=== PATIENT | female | born 2000 | race Caucasian/White ===

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

== ENCOUNTER 2022-11-12 15:56 | Emergency (ER) | payer OTHER, SELFPAY ==
[2022-11-12 16:06] VITALS: BP 107/53; PULSE 92; RESP 16; TEMP 37.2; O2SAT 99
--- NOTE | 2022-11-12 16:34 | ED.ABDPAIN ---
HPI - Abdominal Pain General Chief Complaint: Abdominal Pain Stated Complaint: Abdominal Pain Source: patient Mode of arrival: ambulatory Limitations: no limitations History of Present Illness HPI narrative: Patient presents for evaluation of a burning sensation in her epigastric region since yesterday. She was at work at the time of symptom onset. She had some associated nausea. A friend advise that she smell some rubbing alcohol to assist with the nausea. She did this and noted her nausea improved. No fever, chills, vomiting, diarrhea, change in bowel pattern. Last bowel movement was at 2:00 p.m. today, solid consistency without the presence of blood or mucus in the stool. She is currently menstruating. She took some ibuprofen to assist with menstrual cramps. This did help with cramps but did not assist with the burning sensation. She does not watch her diet. She consumes alcohol occasionally. Denies tobacco use. No vaginal discharge. Related Data Home Medications Medication Instructions Recorded Confirmed albuterol sulfate 2.5 mg/0.5 mL 5 mg inhalation Q4H PRN SOB 06/03/19 04/18/22 solution for nebulization Allergies Allergy/AdvReac Type Severity Reaction Status Date / Time cat dander Allergy Severe Anaphylactic Verified 11/12/22 15:57 Shock peanut Allergy Severe Anaphylactic Verified 11/12/22 15:57 Shock corn Allergy Unknown Unknown Verified 11/12/22 15:57 wheat Allergy Unknown Unknown Verified 11/12/22 15:57 Review of Systems Review of Systems: CONSTITUTIONAL: Denies fever, chills, or sweats. EYES: Denies visual changes, redness, or discharge. ENT: Denies rhinorrhea, congestion, sore throat, or otalgia. CARDIOVASCULAR: Denies chest pain, palpitations, or edema. RESPIRATORY: Denies cough or dyspnea. GASTROINTESTINAL: Reports a burning sensation in her epigastric region with some nausea. Denies abdominal pain per se, vomiting, or diarrhea. GENITOURINARY: Denies dysuria or hematuria. SKIN: Denies rash or itching. MUSCULOSKELETAL: Denies back pain, joint pain, or myalgia. NEUROLOGIC: Denies headache, numbness, dizziness, or weakness. PSYCHIATRIC: Denies anxiety or depression. [facility] Past Medical History Medical History (Updated 11/12/22 @ 16:53 by Saul Sims, TRANSFER STATION ATTENDANT, ) Exacerbation of allergic asthma Moderate persistent asthma Surgical History Surgical History H/O removal of cyst Family History Family History Father Acute myocardial infarction Asthma Grandparent Cerebrovascular accident Social History Social History Smoking status: Never smoker Second hand tobacco smoke exposure: No Alcohol intake: never Substance use: never Substance use type: does not use Living arrangements: with roommate(s) Occupation/Education: occupation Gender identity (if verbalized by the patient): Female Sexual Orientation (if Verbalized by the Patient): Straight or Heterosexual Spiritual care concerns: No Agree to blood products: Yes Exam Narrative: GENERAL: Well-appearing, well-nourished, and in no acute distress. HEAD: Normocephalic, atraumatic. EYES: PERRLA and EOMI. ENT: Nares clear, no rhinorrhea or epistaxis. Mucous membranes moist. Oropharynx without tonsillar hypertrophy exudate or other lesions. Bilateral TMs pearly hebert nonbulging NECK: Supple. No adenopathy or masses. No carotid bruits or JVD CHEST: Clear to auscultation. No respiratory distress. No wheezes rales or rhonchi HEART: Regular rate and rhythm. No murmur heard. Normal peripheral pulses. ABDOMEN: Soft, mild epigastric tenderness without rebound or guarding. Abdomen is nondistended, normal active bowel sounds. EXTREMITIES: Normal range of motion. No edema. SKIN: Warm, dry, no rash. NEURO: No focal deficits. Yvette
== END 2022-11-12 16:35 | disposition home or self-care (01) ==
PROVIDERS: Emergency Provider Nurse Practitioner; PCP Family Medicine Adolescent Medicine
DX: K29.70 Gastritis, unspecified, without bleeding (principal); J45.909 Unspecified asthma, uncomplicated
CPT/HCPCS: 99213; G0463

== ENCOUNTER 2024-08-18 22:24 | Inpatient (IN) | payer OTHER, SELFPAY ==
[2024-08-18] VITALS (22 sets, daily range): BP systolic 97–142; BP diastolic 62–94; PULSE 81–109; O2SAT 98–100; BMI 27.3
[2024-08-18 23:19] LABS: Hemoglobin 9.8 g/dL (12.0-15.0); Mean Corpuscular HGB Conc 32.7 g/dl (32-36); Mean Corpuscular Hemoglobin 27.1 pg (26-34); Mean Corpuscular Volume 83.1 fl (80-100); Mean Platelet Volume 12.4 fl (7.4-10.4); Platelet Count Result 203 k/mm3 (150-375); Red Blood Count 3.61 M/mm3 (4.2-5.4); Red Cell Distribution Width 12.8 % (11.5-14.5); White Blood Count 8.9 K/mm3 (4.5-10.0)
--- NOTE | 2024-08-18 23:19 | WPDANESEPP ---
Anes - Eval Pre Procedure Procedure: labor epidural Date/Time: 08/18/24 23:19 Surgeon: drew Preop Diagnosis: pain during labor Pre Op Diagnosis: Vaginal bleeding, Contractions Patient Data Age: 24 Gender: F Height: Weight: Last Vital Signs Pulse Ox 99 08/18/24 23:18 Allergies Allergy/AdvReac Type Severity Reaction Status Date / Time cat dander Allergy Severe Anaphylactic Verified 06/07/24 08:54 Shock peanut Allergy Severe Anaphylactic Verified 06/07/24 08:54 Shock corn Allergy Unknown Unknown Verified 06/07/24 08:54 wheat Allergy Unknown Unknown Verified 06/07/24 08:54 Home Medications ?Medication ?Instructions ?Recorded ?Confirmed ?Type albuterol sulfate 90 mcg/actuation 2 puff inhalation QID PRN SOB #8.5 09/10/21 06/07/24 Rx aerosol inhaler (ProAir HFA) grams epinephrine 0.3 mg/0.3 mL 0.3 mg (0.3 mL) IM ONCE #2 ea 02/05/23 06/07/24 Rx injection, auto-injector (EpiPen 2-Paolo) montelukast 10 mg tablet 10 mg PO DAILY #30 tabs 06/07/24 06/07/24 Rx Wixela Inhub 250 mcg-50 mcg/dose 1 inh inhalation BID #60 ea 06/21/24 Rx powder for inhalation (fluticasone propion-salmeterol) Laboratory Tests 08/18/24 23:12 WBC Pending RBC Pending Hgb Pending Hct Pending MCV Pending MCH Pending MCHC Pending RDW Pending Plt Count Pending MPV Pending Immature Gran % (Auto) Pending Neut % (Auto) Pending Lymph % (Auto) Pending [place] % (Auto) Pending Eos % (Auto) Pending Baso % (Auto) Pending Lymph # (Auto) Pending [place] # (Auto) Pending Eos # (Auto) Pending Baso # (Auto) Pending Abs Immat Gran (auto) Pending Absolute Neuts (auto) Pending Absolute Nucleated RBC Pending Nucleated RBC % Pending Patient hx anesthesia problems: none Family hx anesthesia problems: none Results Review: All pre-operative results and documents have been reviewed as part of the pre-operative evaluation. [facility] Past Medical History Medical History (Updated 08/18/24 @ 23:20 by Cherrie López CRNA) IUP (intrauterine ), incidental Moderate persistent asthma Exacerbation of allergic asthma Full code status Surgical History Surgical History (Updated 06/04/24 @ 05:56 by Francis Garcia MD) H/O removal of cyst Family History Family History Father Acute myocardial infarction Asthma Grandparent Cerebrovascular accident Social History Social History Smoking status: Never smoker Second hand tobacco smoke exposure: No Alcohol intake: never Substance use: never Substance use type: does not use Living arrangements: with roommate(s) Occupation/Education: occupation Gender identity (if verbalized by the patient): Female Sexual Orientation (if Verbalized by the Patient): Straight or Heterosexual Spiritual care concerns: No Agree to blood products: Yes Exam Day of Procedure 08/18/24 23:19
[2024-08-18] MEDS: LACTATED RINGERS 1,000 ML 125 ML IV CONT (23:20)
[2024-08-18] MEDS: AMPICILLIN 2 GM/NS 100 ML 2 GM/100 ML BAG IVPB (23:41)
[2024-08-18 23:42] LABS: Band Neutrophils Percent 7 % (0-6); Eosinophils Absolute Manual 0.17 K/mm3 (0.02-0.50); Eosinophils Percent Manual 2 % (0-4); Lymphocytes Absolute Manual 2.67 K/mm3 (1.1-4.5); Monocytes Absolute Manual 0.26 K/mm3 (0.1-0.90); Monocytes Percent Manual 3 % (3-9); Neutrophils Absolute Manual 5.78 K/mm3 (1.7-7.2); Neutrophils Percent Manual 58 % (46-73); Nucleated Red Blood Cells 1 %; Platelet Estimate Adequate (Adequate); Total Cells Counted 100
[2024-08-18 23:43] LABS: Anisocytosis 1+; Hypochromasia 1+; Large Platelets Present; Ovalocytes 1+; Schistocytes None Seen
--- NOTE | 2024-08-18 23:49 | LDADM ---
This patient, Mary Mantilla, was admitted to Labor/Delivery/Recovery 105 on 08/18/24 at 22:24. Plans for labor, pain management and were discussed with patient. Patient/family oriented to hospital policies and general routines including ID bracelet, bed and alarms, visiting hours, pain management, procedures, bathroom and other care routines, personal items, smoking policy, room service/diet and guest tray routines, security routines, and visiting hours. Patient/Family are encouraged to report perceived risks to care and to ask questions if they do not understand what they are told or what they should do. See OBIX for further documentation.
[2024-08-19] VITALS (49 sets, daily range): BP systolic 83–134; BP diastolic 46–94; PULSE 69–105; RESP 14–20; TEMP 36.6–37; O2SAT 96–100
[2024-08-19 00:27] LABS: HIV 1/2 Ab P24 Ag Result Negative (Negative)
[2024-08-19] MEDS: TERBUTALINE SULFATE 1 MG/ML VIAL 0.25 MG SUB-Q (01:11)
--- NOTE | 2024-08-19 01:12 | PM.IMHP ---
H&P: HPI History of Present Illness Date/Time: 08/19/24 01:12 Chief Complaint: Bleeding at 35 weeks Narrative: this is a 24-year-old 2 para 0 whose last menstrual period was 12/20/2023, EDC is 09/28, presents at 30 5 weeks gestation in active labor. With been previously uncomplicated Review of Systems Review of Systems: CONSTITUTIONAL: Denies fever, chills, or sweats. EYES: Denies visual changes, redness, or discharge. ENT: Denies rhinorrhea, congestion, sore throat, or otalgia. CARDIOVASCULAR: Denies chest pain, palpitations, or edema. RESPIRATORY: Denies cough or dyspnea. GASTROINTESTINAL: Reports a burning sensation in her epigastric region with some nausea. Denies abdominal pain per se, vomiting, or diarrhea. GENITOURINARY: Denies dysuria or hematuria. SKIN: Denies rash or itching. MUSCULOSKELETAL: Denies back pain, joint pain, or myalgia. NEUROLOGIC: Denies headache, numbness, dizziness, or weakness. PSYCHIATRIC: Denies anxiety or depression. [facility] Past Medical History Medical History IUP (intrauterine ), incidental Moderate persistent asthma Exacerbation of allergic asthma Full code status Surgical History Surgical History H/O removal of cyst Family History Family History Father Acute myocardial infarction Asthma Grandparent Cerebrovascular accident Social History Social History Smoking status: Former smoker Tobacco type: e-cigarettes/vaping Second hand tobacco smoke exposure: No Alcohol intake: never Substance use: never Substance use type: does not use Do You Feel Safe in your Home?: Yes Lack of Transportation: No Lack of Food: Never True Current Housing: I Have Housing Concerned About Future Housing: No Difficulty Paying Gas/Electric Bills: No Difficulty Paying for Meds: No Currently Unemployed: No Education: Associate Degree Difficulty w/ Childcare or Family Care: No Living arrangements: with roommate(s) Occupation/Education: occupation Gender identity (if verbalized by the patient): Female Sexual Orientation (if Verbalized by the Patient): Straight or Heterosexual Spiritual care concerns: No Agree to blood products: Yes Meds Home Medications and Allergies Home Medications ?Medication ?Instructions ?Recorded ?Confirmed ?Type albuterol sulfate 90 mcg/actuation 2 puff inhalation QID PRN SOB #8.5 09/10/21 06/07/24 Rx aerosol inhaler (ProAir HFA) grams epinephrine 0.3 mg/0.3 mL 0.3 mg (0.3 mL) IM ONCE #2 ea 02/05/23 06/07/24 Rx injection, auto-injector (EpiPen 2-Paolo) montelukast 10 mg tablet 10 mg PO DAILY #30 tabs 06/07/24 06/07/24 Rx Wixela Inhub 250 mcg-50 mcg/dose 1 inh inhalation BID #60 ea 06/21/24 Rx powder for inhalation (fluticasone propion-salmeterol) Allergies Allergy/AdvReac Type Severity Reaction Status Date / Time cat dander Allergy Severe Anaphylactic Verified 06/07/24 08:54 Shock peanut Allergy Severe Anaphylactic Verified 06/07/24 08:54 Shock corn Allergy Unknown Unknown Verified 06/07/24 08:54 wheat Allergy Unknown Unknown Verified 06/07/24 08:54 Vital Signs Vital Signs - 24 hr 08/18/24 23:09 08/18/24 23:14 08/18/24 23:18 Pulse Rate Blood Pressure Pulse Oximetry 99 98 99 Oxygen Delivery 08/18/24 23:23 08/18/24 23:28 08/18/24 23:30 Pulse Rate 104 H 96 Blood Pressure 137/84 133/81 Pulse Oximetry 98 99 Oxygen Delivery 08/18/24 23:32 08/18/24 23:33 08/18/24 23:35 Pulse Rate 96 102 H Blood Pressure 142/82 H 120/94 H Pulse Oximetry 100 Oxygen Delivery 08/18/24 23:38 08/18/24 23:40 08/18/24 23:42 Pulse Rate 109 H 101 H 81 Blood Pressure 97/77 L 119/68 119/68 Pulse Oximetry 100 Oxygen Delivery 08/18/24 23:43 08/18/24 23:45 08/18/24 23:45 Pulse Rate 92 Blood Pressure 129/67 Pulse Oximetry 100 Oxygen Delivery Room Air 08/18/24 23:47 08/18/24 23:48 08/18/24 23:50 Pulse Rate 89 89 Blood Pressure 130/62 127/66 Pulse Oximetry 99 Oxygen Delivery 08/18/24 23:52 08/18/24 23:53 08/18/24 23:55 Pulse Rate 96 95 Blood Pressure 121/71 111/80 Pulse Oximetry 99 Oxygen Delivery 08/18/24 23:57 08/18/24 23:58 08/19/24 00:00 Pulse Rate 89 87 Blood Pressure 125/65 129/59 L Pulse Oximetry 99 Oxygen Delivery 08/19/24 00:03 08/19/24 00:05 08/19/24 00:08 Pulse Rate 88 91 Blood Pressure 126/58 L 114/46 L Pulse Oximetry 99 99 Oxygen Delivery 08/19/24 00:11 08/19/24 00:13 08/19/24 00:15 Pulse Rate 88 83 77 Blood Pressure 124/67 121/56 L 112/59 L Pulse Oximetry 99 Oxygen Delivery 08/19/24 00:18 08/19/24 00:23 08/19/24 00:28 Pulse Rate Blood Pressure Pulse Oximetry 100 100 97 Oxygen Delivery 08/19/24 00:30 08/19/24 00:33 08/19/24 00:38 Pulse Rate 92 Blood Pressure 115/69 Pulse Oximetry 99 98 Oxygen Delivery 08/19/24 00:43 08/19/24 00:45 08/19/24 00:48 Pulse Rate 73 Blood Pressure 109/56 L Pulse Oximetry 98 99 Oxygen Delivery 08/19/24 00:53 08/19/24 00:58 08/19/24 01:03 Pulse Rate Blood Pressure Pulse Oximetry 99 98 98 Oxygen Delivery 08/19/24 01:06 Pulse Rate Blood Pressure Pulse Oximetry 96 Oxygen Delivery Exam Const: General: cooperative, healthy appearing, comfortable and uncomfortable Nutritional Appearance: average body habitus Orientation/consciousness: oriented to person, oriented to place and oriented to time HENMT: Head: normal to inspection ( gravid soft uterus) Resp: Effort & Inspection: normal respiratory effort Cardio: Rate: regular rate Rhythm: regular rhythm Heart sounds: S1 normal heart sound present and S2 normal heart sound present GI: Inspection: normal to inspection ( gravid soft uterus) : External Female Exam: normal external appearance Speculum Exam - Vagina: normal appearance of the vagina Speculum Exam - Cervix: normal appearance of the cervix ( cervix ) and Other cervical findings present ( deep variables present so electrode and IUPC placed. FHTs questionable) H&P: Results Labs Labs: Short CBC 08/18/24 Range/Units 23:12 WBC 8.9 (4.5-10.0) K/mm3 Hgb 9.8 L (12.0-15.0) g/dL Hct 30.0 L (37.0-47.0) % Plt Count 203 (150-375) k/mm3 Assessment and Plan Assessment and plan (1) labor: Code(s): O60.00 - labor without delivery, unspecified trimester Status: Acute Plan in light of the recurrent deep decelerations with distance to delivery offered low-dose transverse section. Risks and benefits reviewed in great detail
--- NOTE | 2024-08-19 01:16 | WPDHPUPDATE1 ---
History and Physical Update Update Date/Time: 08/19/24 01:16 History and Physical has been reviewed, including an updated exam of the patient. There are NO changes in the patient's condition. Risks, benefits, and alternatives have been discussed and questions answered. Patient agrees to proceed with procedure.
[2024-08-19] MEDS: AZITHROMYCIN 500 MG/NS 250 ML 500 MG/250 ML BAG 250 MG IVPB (01:19)
[2024-08-19] MEDS: ceFAZolin 2 GM/D5W 50 ML 2 GM/50 ML BAG IVPB (01:19)
[2024-08-19] MEDS: FAMOTIDINE 20 MG/2 ML VIAL IV PUSH (01:19)
[2024-08-19 01:27] LABS: Rapid Plasma Reagin Non-Reactive (NonReactive)
--- NOTE | 2024-08-19 01:55 | W.PM.OBCSD ---
OB - Delivery Note Procedure Delivery date: 08/19/24 Pre-op diagnosis: Decelerations Post-op Diagnosis: Same Induction method: None Delivery monitor: External FHT, External Uterine, Internal FHT and Internal Uterine Prior to decision for section, ACOG/SMFM labor guidelines were considered and discussed with the patient and staff. Decision made to proceed with the section.: Yes Procedure Performed: Primary Surgeon: Bernabe Landers MD Anesthesia type: Epidural Description of Procedure/Findings: Patient was admitted at 35 and 6 7th weeks gestation with bleeding she was noted to be 5-6 cm. Recurrent decelerations were present so an IUPC and electrode replaced. Repositioning oxygenation resuscitated the baby however there remained a lot of variable decelerations. In light of her distance to deliver she was offered low-transverse section. After obtaining informed consent she was unable to the back. Patient is prepped draped in the normal sterile fashion placed in the supine position. Under excellent epidural anesthesia the abdomen was entered in Pfannenstiel fashion progressive layers of fascia. Fascia incised midline carried number towel fashion bilaterally. Underlying muscles sharply dissected. Parietal peritoneum male by Meghna clamps and by sharp dissection. This was carried superiorly and inferiorly the dome of the bladder. Bladder blade was placed. Bladder flap was formed. Bladder blade returned. A low-transverse incision made the head delivered the DONNIE position anterior posterior shoulder delivered spontaneously. Cord clamped times and cut infant passed off the table with a cry. Placenta delivered intact manually. Uterus delivered on the abdomen wrapped in a moist towel. After assuring no membranes or debris remained in the uterus, the uterus was closed with continuous running locking Vicryl from lateral edge to lateral edge. Followed by 2nd imbricating running locking 0 Vicryl from lateral edge to lateral edge. Hemostasis was assured. Ovaries and tubes appeared within normal limits the uterus returned to the abdomen. Hysterotomy incision inspected 1 last time noted be hemostatic. Laps removed and accounted for. The fascia closed with continuous running 0 Vicryl from lateral edge to lateral edge. Irrigation subcutaneous layer and the skin closed with 4 Monocryl and glue QBL was 595. All sponge, needle, instrument counts were correct. There were no immediate complications Specimen: No Estimated Blood Loss: 565 Drains: No Packing: No Pathology: None sent Complications: No immediate complications Condition: Stable Disposition: PACU Baby Date of : 08/19/24 Time of : 01:13 Gestational Age by Date: 35 Infant gender: Male presentation: vertex position: Right Occiput Anterior Placenta delivery description: Manual Removal Cord Vessel Description: 3 Vessels
--- NOTE | 2024-08-19 01:59 | P.DS_ITS ---
DS: Admitting Diagnosis Discharge Date 08/21/2024 Admitting Diagnosis pre term labor DS: Discharge Diagnosis Discharge Diagnosis (1) IUP (intrauterine ), incidental: Code(s): Z33.1 - state, incidental Status: Acute (2) labor: Code(s): O60.00 - labor without delivery, unspecified trimester Status: Acute DS: Summary Hospital Course Reason for hospitalization: patient was admitted on the evening of 08/18/2024. 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 Hospital Course: Patient's hospital course unremarkable. She remained afebrile. She was up, voiding without difficulty, eating regular diet, ambulating, and generally without complaints. Time Spent with Patient Time attestation: Total time spent providing and/or coordinating discharge services: Exam Const: General: cooperative, healthy appearing and comfortable Nutritional Appearance: average body habitus Orientation/consciousness: oriented to person, oriented to place and oriented to time Resp: Effort & Inspection: normal respiratory effort Cardio: Rate: regular rate Rhythm: regular rhythm Heart sounds: S1 normal heart sound present and S2 normal heart sound present GI: Inspection: normal to inspection and incision ( Wound is clean dry and intact) DS: Data Data Completed and Pending Labs on day of discharge: Labs from last 24 hours 08/18/24 08/18/24 23:28 23:12 WBC 8.9 RBC 3.61 L Hgb 9.8 L Hct 30.0 L MCV 83.1 MCH 27.1 MCHC 32.7 RDW 12.8 Plt Count 203 MPV 12.4 H Immature Gran % (Auto) Not Reportable Neut % (Auto) Not Reportable Lymph % (Auto) Not Reportable [place] % (Auto) Not Reportable Eos % (Auto) Not Reportable Baso % (Auto) Not Reportable Lymph # (Auto) Not Reportable [place] # (Auto) Not Reportable Eos # (Auto) Not Reportable Baso # (Auto) Not Reportable Abs Immat Gran (auto) Not Reportable Absolute Neuts (auto) Not Reportable Absolute Nucleated RBC Not Reportable Total Counted 100 Neutrophils % (Manual) 58 Band Neutrophils % 7 H Lymphocytes % (Manual) 30.0 Monocytes % (Manual) 3 Eosinophils % (Manual) 2 Nucleated RBC % Not Reportable Abs Neuts (Manual) 5.78 Abs Lymphs (Manual) 2.67 Abs Monocytes (Manual) 0.26 Absolute Eos (Manual) 0.17 Nucleated RBCs 1 Platelet Estimate Adequate Large Platelets Present Hypochromasia 1+ Anisocytosis 1+ Ovalocytes 1+ Schistocytes None seen RPR Non-reactive HIV 1&2 Ab/P24 Ag 4thGn Negative Blood Type A Positive Antibody Screen Pending Discharge Plan Discharge Attending physician on discharge: Bernabe Fuentes Discharging Clinician: Brenabe Fuentes Patient Disposition: Home, Self-Care Activity: may shower, no straining and pelvic rest Diet: heart healthy Wound Care Instructions: follow printed instructions Patient Instructions: Antibiotic Form Patient Language: [place] Stand Alone Forms: General Discharge Information Follow-up/Referrals: Bernabe Fuentes MD [Physician] - Discharge Medications: New hydrocodone-acetaminophen 5-325 mg tablet 1 tablet PO Q4H PRN (Reason: pain) Qty: 30 0RF Continued albuterol sulfate [ProAir HFA] 90 mcg/actuation HFA aerosol inhaler 2 puff INHALATION QID PRN (Reason: SOB) Qty: 8.5 0RF montelukast 10 mg tablet 10 mg PO DAILY Qty: 30 11RF epinephrine [EpiPen 2-Paolo] 0.3 mg/0.3 mL auto-injector 0.3 mg IM ONCE Qty: 2 0RF Rx Instructions: as a single dose; may repeat once fluticasone propion-salmeterol [Wixela Inhub] 250-50 mcg/dose blister with device 1 inh inhalation BID Qty: 60 11RF Date of admission: 08/18/24 22:24 Primary Care Provider: Francis Garcia Admitting Provider: Bernabe Fuentes Attending physician on admission: Bernabe Fuentes Condition: Stable
[2024-08-19] MEDS: OXYTOCIN 30 UNITS/NS 500 ML 30 UNITS/500 ML BAG 125 UNITS IV CONT (02:30)
[2024-08-19] MEDS: ONDANSETRON INJ 4 MG/2 ML VIAL IV PUSH (02:46)
[2024-08-19] MEDS: KETOROLAC 15 MG/ML VIAL (*BKC) IV PUSH ×2 (04:34→11:00)
--- NOTE | 2024-08-19 06:01 | PC.NURSE ---
0124- Heart Tones noted to be in 150's with moderate variability prior to c/s. Variable deceleration noted. Copy of strip placed in maternal chart.
--- NOTE | 2024-08-19 06:14 | PC.NURSE ---
0125- FSE removed intact in OR
[2024-08-19] MEDS: LIDOCAINE 5% PATCH 1 PATCH TRANSDERM (06:55)
[2024-08-19] MEDS: POLYSACCHARIDE IRON COMPLEX 150 MG CAPSULE PO (06:55)
[2024-08-19] MEDS: MULTIVIT/MIN/PREN/FOL AC/IRON TABLET 1 TAB PO (06:55)
[2024-08-19] MEDS: DEXTROSE 5%/0.45% SOD CHL 1,000 ML 125 ML IV CONT (06:55)
[2024-08-19] MEDS: HYDROcodone/acetaminophen (*CRX) 10-325 MG TABLET 1 TAB PO ×2 (06:55→15:03)
[2024-08-19] MEDS: SIMETHICONE 80 MG TAB.CHEW PO ×3 (06:55→21:42)
--- NOTE | 2024-08-19 07:30 | PC.NURSE ---
Breast pump provided due to [infant transfer to [facility]]. Instructions given on cleaning, care, usage, that there should be no pain, pumping schedule for milk production, collection, and storage of human milk. Patient was assessed for correct placement, flange size (21mm), to pump for comfort and nipple stretching/stimulation for adequate milk production every 3 hours (8 times in 24 hours) 1-2 times at night.?Mother voiced understanding of the education shared along with mom/baby guide and the Pumping Primer, Cleaning Your Pump, and Breastmilk storage guidelines for reference. Patient pumped 6ml and it was labeled and refrigerated. Assisted her with washing her pump parts. Reported to the Primary RN.
[2024-08-19] MEDS: ACETAMINOPHEN 325 MG TABLET 650 MG PO ×2 (11:00→17:00)
--- NOTE | 2024-08-19 16:38 | PC.NURSE ---
Patient left unit at 1537, via wheelchair with her boyfriend, to go see baby at [facility]. Patient knows to be back within 6 hours.
[2024-08-19] MEDS: IBUPROFEN 600 MG TABLET PO (17:00)
[2024-08-19] MEDS: HYDROcodone/acetaminophen (*CRX) 5-325 MG TABLET 1 TAB PO (21:42)
[2024-08-20] MEDS: HYDROcodone/acetaminophen (*CRX) 10-325 MG TABLET 1 TAB PO (02:40)
[2024-08-20] MEDS: IBUPROFEN 600 MG TABLET PO ×4 (02:40→23:27)
[2024-08-20 04:11] LABS: Basophils Percent Auto 0.3 % (0.2-1.2); Eosinophils Absolute Auto 0.2 K/mm3 (0-0.3); Eosinophils Percent Auto 1.9 % (0-4.4); Hematocrit 24.8 % (37.0-47.0); Hemoglobin 7.9 g/dL (12.0-15.0); Immature Granulocyte Absolute 0.07 K/mm3 (0.00-0.031); Immature Granulocyte Percent A 0.7 % (0-0.5); Lymphocytes Absolute Auto 2.12 K/mm3 (0.9-3.2); Lymphocytes Percent Auto 21.9 % (18.3-44.2); Mean Corpuscular HGB Conc 31.9 g/dl (32-36); Mean Corpuscular Volume 84.6 fl (80-100); Mean Platelet Volume 11.3 fl (7.4-10.4); Monocytes Absolute Auto 0.7 K/mm3 (0.1-0.6); Monocytes Percent Auto 7.6 % (2.6-8.5); Neutrophils Absolute Auto 6.6 K/mm3 (1.3-6.7); Neutrophils Percent Auto 67.6 % (45.5-73.1); Platelet Count Result 168 k/mm3 (150-375); Red Blood Count 2.93 M/mm3 (4.2-5.4); Red Cell Distribution Width 13.2 % (11.5-14.5); White Blood Count 9.7 K/mm3 (4.5-10.0)
[2024-08-20] MEDS: HYDROcodone/acetaminophen (*CRX) 5-325 MG TABLET 1 TAB PO ×2 (07:28→23:27)
--- NOTE | 2024-08-20 07:29 | PM.OBPNVD ---
OB - PN: Subj Subjective Date/time seen: 08/20/24 07:29 Patient comments: no complaints, pain well controlled, tolerating diet and flatus present OB - PN: Obj Data Labs 08/20/24 03:50 Labs: Laboratory Results - last 24 hr 08/20/24 03:50 WBC 9.7 RBC 2.93 L Hgb 7.9 L Hct 24.8 L MCV 84.6 MCH 27.0 MCHC 31.9 L RDW 13.2 Plt Count 168 MPV 11.3 H Immature Gran % (Auto) 0.7 H Neut % (Auto) 67.6 Lymph % (Auto) 21.9 [place] % (Auto) 7.6 Eos % (Auto) 1.9 Baso % (Auto) 0.3 Lymph # (Auto) 2.12 [place] # (Auto) 0.7 H Eos # (Auto) 0.2 Baso # (Auto) 0.0 Abs Immat Gran (auto) 0.07 H Absolute Neuts (auto) 6.6 Absolute Nucleated RBC 0.000 Nucleated RBC % 0.0 OB - PN A/P Assessment and Plan (1) IUP (intrauterine ), incidental: Code(s): Z33.1 - state, incidental Status: Acute (2) labor: Code(s): O60.00 - labor without delivery, unspecified trimester Status: Acute Assessment and Plan: begin iron Time Spent With Patient Time: Total time spent is greater than 50% in coordination of care (as documented) at patient's floor/unit and/or counseling patient: Review of Systems Review of Systems: CONSTITUTIONAL: Denies fever, chills, or sweats. EYES: Denies visual changes, redness, or discharge. ENT: Denies rhinorrhea, congestion, sore throat, or otalgia. CARDIOVASCULAR: Denies chest pain, palpitations, or edema. RESPIRATORY: Denies cough or dyspnea. GASTROINTESTINAL: Reports a burning sensation in her epigastric region with some nausea. Denies abdominal pain per se, vomiting, or diarrhea. GENITOURINARY: Denies dysuria or hematuria. SKIN: Denies rash or itching. MUSCULOSKELETAL: Denies back pain, joint pain, or myalgia. NEUROLOGIC: Denies headache, numbness, dizziness, or weakness. PSYCHIATRIC: Denies anxiety or depression. Exam Const: General: cooperative, healthy appearing and comfortable Nutritional Appearance: average body habitus Orientation/consciousness: oriented to person, oriented to place and oriented to time HENMT: Head: normal to inspection Resp: Effort & Inspection: normal respiratory effort Cardio: Rate: regular rate Rhythm: regular rhythm Heart sounds: S1 normal heart sound present and S2 normal heart sound present GI: Inspection: normal to inspection and incision (cdi)
[2024-08-20] MEDS: LIDOCAINE 5% PATCH 1 PATCH TRANSDERM (07:30)
[2024-08-20] MEDS: MULTIVIT/MIN/PREN/FOL AC/IRON TABLET 1 TAB PO (08:26)
[2024-08-20] MEDS: SIMETHICONE 80 MG TAB.CHEW PO ×3 (08:26→15:52)
[2024-08-20] MEDS: ACETAMINOPHEN 325 MG TABLET 650 MG PO ×2 (08:26→15:51)
[2024-08-20] MEDS: POLYSACCHARIDE IRON COMPLEX 150 MG CAPSULE PO ×2 (08:26→15:52)
[2024-08-20] MEDS: DOCUSATE SODIUM LIQ 100 MG/10 ML UDC PO ×2 (08:35→15:51)
[2024-08-20 08:40] VITALS: BP 133/82; PULSE 88; RESP 18; TEMP 36.8; O2SAT 100
--- NOTE | 2024-08-20 10:29 | WPDANLDPN2 ---
Anes-Prog Note L&D Date/Time: 08/20/24 10:29 Comfortable throughout: section Neuraxial method: epidural Epidural/Spinal procedure site: clean & non-tender Neuro status: Neuro function grossly intact. Cardiovascular status: normal Respiratory status: normal Airway patency: baseline Mental status: baseline Post-Op hydration status: normal Vital Signs: Last Vital Signs Temp 36.8 C 08/20/24 08:40 Pulse 88 08/20/24 08:40 Resp 18 08/20/24 08:40 BP 133/82 08/20/24 08:40 Pulse Ox 100 08/20/24 08:40 O2 Del Method Room Air 08/19/24 21:30 Pain score (VAS): 0 I/O: Intake & Output 08/19/24 08/20/24 08/20/24 23:59 07:59 15:59 Intake Total 100 Balance 100 Post-procedural complaints: none Patient feedback: Patient satisfied with anesthetic care.
--- NOTE | 2024-08-20 10:30 | WPDANLDNPN2 ---
Anes-Prog Note L&D-Neuraxial Date/Time: 08/20/24 10:30 Neuraxial medications: epidural PF morphine Opiod-related complaints: none Patient feedback: Patient satisfied with post-operative pain management.
--- NOTE | 2024-08-20 12:26 | PC.NURSE ---
Introductions were made and consulted with patient to assess questions or concerns regarding pumping. Mother is currently using the hospital breastpump and plans to bring her own personal breastpump from home. Once breastpump has arrived, patient will call this RN for help setting up/using her pump. Additional milk collection containers given to mother. Handouts for education regarding breast milk storage given to mother.
--- NOTE | 2024-08-20 16:16 | PC.NURSE ---
Pt left on therapeutic pass at 1616 per wheelchair, accompanied by significant other.
[2024-08-20 22:00] VITALS: BP 132/90; PULSE 91; RESP 18; TEMP 37; O2SAT 99
[2024-08-21] MEDS: IBUPROFEN 600 MG TABLET PO ×2 (06:25→12:21)
[2024-08-21] MEDS: ACETAMINOPHEN 325 MG TABLET 650 MG PO ×2 (06:25→12:21)
[2024-08-21] MEDS: MULTIVIT/MIN/PREN/FOL AC/IRON TABLET 1 TAB PO (06:28)
[2024-08-21] MEDS: POLYSACCHARIDE IRON COMPLEX 150 MG CAPSULE PO (06:28)
[2024-08-21] MEDS: DOCUSATE SODIUM LIQ 100 MG/10 ML UDC PO (06:28)
[2024-08-21 06:30] VITALS: BP 128/79; PULSE 73; RESP 18; TEMP 36.7; O2SAT 97
--- NOTE | 2024-08-21 06:58 | P.PNOB_ITS ---
OB - PN: Subj Subjective Date/time seen: 08/21/24 06:58 Patient comments: no complaints, pain well controlled, incisional pain, tolerating diet and flatus present OB - PN: Obj Data Labs 08/20/24 03:50 OB - PN A/P Assessment and Plan (1) IUP (intrauterine ), incidental: Code(s): Z33.1 - state, incidental Status: Acute (2) labor: Code(s): O60.00 - labor without delivery, unspecified trimester Status: Acute Plan Comments: home Time Spent With Patient Time: Total time spent is greater than 50% in coordination of care (as documented) at patient's floor/unit and/or counseling patient: Review of Systems 2 Review of Systems: CONSTITUTIONAL: Denies fever, chills, or sweats. EYES: Denies visual changes, redness, or discharge. ENT: Denies rhinorrhea, congestion, sore throat, or otalgia. CARDIOVASCULAR: Denies chest pain, palpitations, or edema. RESPIRATORY: Denies cough or dyspnea. GASTROINTESTINAL: Reports a burning sensation in her epigastric region with some nausea. Denies abdominal pain per se, vomiting, or diarrhea. GENITOURINARY: Denies dysuria or hematuria. SKIN: Denies rash or itching. MUSCULOSKELETAL: Denies back pain, joint pain, or myalgia. NEUROLOGIC: Denies headache, numbness, dizziness, or weakness. PSYCHIATRIC: Denies anxiety or depression. Exam 2 Const: General: cooperative, healthy appearing and comfortable Nutritional Appearance: average body habitus Orientation/consciousness: oriented to person, oriented to place and oriented to time HENMT: Head: normal to inspection Resp: Effort & Inspection: normal respiratory effort Cardio: Rate: regular rate Rhythm: regular rhythm Heart sounds: S1 normal heart sound present and S2 normal heart sound present GI: Inspection: normal to inspection and incision (cdi)
--- NOTE | 2024-08-21 11:31 | PC.NURSE ---
Called to patient room to assist with setting up her pump brought from home ([employer]). Pump set up was complete with patient and assured that patient was in the correct size flange. Handouts were provided for pump storage, cleaning and feeding. Patient denies any additional questions.
[2024-08-21] MEDS: SIMETHICONE 80 MG TAB.CHEW PO (12:21)
== END 2024-08-21 15:31 | disposition home or self-care (01) | DRG 788 ==
LOC: ANHLDR 08-19 01:16 → ANHOB2 08-19 05:23
PROVIDERS: Obstetrics & Gynecology; Admitting Provider Obstetrics & Gynecology; PCP Family Medicine Adolescent Medicine; Visit Provider Obstetrics & Gynecology
PROC: 10D00Z1 Extraction of Products of Conception, Low, Open Approach (ICD-10-PCS; CPT 59514; principal; 2024-08-19 01:15)
DX: O60.14X0 Preterm labor third trimester with preterm delivery third trimester, not applicable or unspecified (principal); Z37.0 Single live birth; Z3A.35 35 weeks gestation of pregnancy; O36.8330 Maternal care for abnormalities of the fetal heart rate or rhythm, third trimester, not applicable or unspecified
CPT/HCPCS: 36415; 85025; 86592; 86703; 86850; 86900; 86901; A9270; G0432; J0290; J0456; J0690; J1885; J2003; J2175; J2274; J2405; J2590; J2795; J3105; J7120

== ENCOUNTER 2024-12-23 11:52 | Emergency (ER) | payer OTHER, SELFPAY ==
[2024-12-23 12:07] VITALS: BP 119/60; PULSE 87; RESP 14; TEMP 36.6; O2SAT 100
--- NOTE | 2024-12-23 12:29 | ED.FEMALEGU ---
HPI - Female Genitourinary General Chief complaint: Urogenital-Female Stated complaint: UTI Time Seen by Provider: 12/23/24 12:29 Source: patient, RN notes reviewed and old records reviewed Mode of arrival: ambulatory Limitations: no limitations History of Present Illness HPI Narrative: 24-year-old female presents to the [facility] with concerns for UTI. Started with some urgency and frequency yesterday, dribbling, burning with urination, lower abdominal pain. Last menstrual period started today. Patient did take azo prior to arrival, unable to do urine dip Related Data Allergies Allergy/AdvReac Type Severity Reaction Status Date / Time cat dander Allergy Severe Anaphylactic Verified 12/23/24 12:11 Shock peanut Allergy Severe Anaphylactic Verified 12/23/24 12:11 Shock Review of Systems Review of Systems: All systems reviewed & are unremarkable except as noted in HPI and below Constitutional: Constitutional: Reports no additional constitutional complaints ENT: Reports system reviewed and no additional complaints, except as documented Cardiovascular: Cardiovascular: Reports no additional cardiovascular complaints, Denies chest pain and Denies dyspnea Respiratory: Respiratory: Reports no additional respiratory complaints, Denies chest congestion, Denies cough and Denies dyspnea Genitourinary: Genitourinary: Reports as per HPI Musculoskeletal: Musculoskeletal: Reports no additional musculoskeletal complaints Integumentary/Breasts: Skin/Breast: Reports system reviewed and no additional complaints, except as docu PMFSH Past Medical History Medical History IUP (intrauterine ), incidental Moderate persistent asthma Exacerbation of allergic asthma Full code status Surgical History Surgical History H/O removal of cyst Family History Family History Father Acute myocardial infarction Asthma Grandparent Cerebrovascular accident Social History Social History Smoking status: Former smoker Tobacco type: e-cigarettes/vaping Second hand tobacco smoke exposure: No Alcohol intake: never Substance use: never Substance use type: does not use Do You Feel Safe in your Home?: Yes Lack of Transportation: No Lack of Food: Never True Current Housing: I Have Housing Concerned About Future Housing: No Difficulty Paying Gas/Electric Bills: No Difficulty Paying for Meds: No Currently Unemployed: No Education: Associate Degree Difficulty w/ Childcare or Family Care: No Living arrangements: with roommate(s) Occupation/Education: occupation Gender identity (if verbalized by the patient): Female Sexual Orientation (if Verbalized by the Patient): Straight or Heterosexual Spiritual care concerns: No Agree to blood products: Yes Comments At the time of my signature, I reviewed and agree with the nursing past medical, surgical, social, and family history. There is no relevant family history pertinent to the patient complaint. Exam Const: General: cooperative, healthy appearing, comfortable, no acute distress, well developed, alert and well nourished Nutritional Appearance: well nourished Orientation/consciousness: patient oriented x3 Limitations: no limitations HENMT: Head: normal to inspection Eyes: General: appearance normal, both eyes and all related structures Alignment and Position: alignment normal Neck: Neck: normal visual inspection, full ROM, no lymphadenopathy and no meningeal signs Chest: Chest palpation & inspection: normal inspection of the chest Resp: Effort & Inspection: normal respiratory effort and able to speak in complete sentences Auscultation: clear to auscultation bilaterally, no crackles, no rales, no rhonchi and no wheezes Cardio: Rate: regular rate GI: GI Palp: No abdominal tenderness : General: Yes no CVA tenderness Skin: General skin exam: normal color and no rashes or lesions noted Neuro: General: patient oriented x3, gait normal, moves all extremities and no meningeal signs Cognition (Neuro): normal cognition Speech: normal speech Gait exam (Neuro): Normal gait present Extrem: General: normal to inspection, full ROM, capillary refill normal and normal gait Psych: Appearance: grossly normal and well kempt Mental Status: mental status grossly normal Speech and movement: Normal speech and movement present and Clear speech present Affect: normal affect Attitude: cooperative Course Course Level of Care: Express Care Visit Vital Signs Vital signs: Vital Signs Temperature 98 F 12/23/24 12:07 Pulse Rate 87 12/23/24 12:07 Respiratory Rate 14 12/23/24 12:07 Blood Pressure 119/60 12/23/24 12:07 Pulse Oximetry 100 12/23/24 12:07 Oxygen Delivery Room Air 12/23/24 12:07 Temperature 98 F 12/23/24 12:07 Pulse Rate 87 12/23/24 12:07 Respiratory Rate 14 12/23/24 12:07 Blood Pressure 119/60 12/23/24 12:07 Pulse Oximetry 100 12/23/24 12:07 Oxygen Delivery Room Air 12/23/24 12:07 Reviewed MDM - Female Genitourinary MDM Narrative Medical decision making narrative: Patient sitting in exam room. Patient is nontoxic. Patient presents with urinary symptoms, will cover with antibiotic unable to do urine dip but will culture due to azo. Patient appropriate for outpatient treatment and follow-up Discharge instructions reviewed with patient, as well as provided in writing per nursing staff. The instructions also include specific and strict return/GO TO THE ER as well as f/u information. All questions have been answered, and the patient deny any further questions with discharge and discharge plan. Some parts of this dictation were generated by voice recognition software and may contain typographical and/or grammatical inaccuracies. Differential Diagnosis Differential diagnosis: Likely urinary tract infection, bacterial vaginosis and dysmenorrhea Lab Data Labs: Lab Results 12/23/24 Range/Units 12:44 POC Urine HCG, Qual Negative (Negative) Reviewed Critical Care Time Critical Care Time Critical Care Time: No Discharge Plan Discharge Clinical Impression: Dysuria Patient Disposition: Home Condition: Stable Instructions: Antibiotic Form, Urinary Tract Infection in Women (DC), Dysuria (ED) Additional Instructions: Increased water intake Take Tylenol as needed for pain Take antibiotic as prescribed You have been prescribed an antibiotic. Your urine will be sent to our lab for a culture. If at that time a bacteria grows that is not covered by the antibiotic prescribed you will be notified. Follow-up with primary care For new or worsening symptoms go directly to the emergency room Patient Language: Indonesian Prescriptions: New amoxicillin-pot clavulanate 875-125 mg tablet 1 tablet PO Q12H Qty: 10 0RF No Action albuterol sulfate [ProAir HFA] 90 mcg/actuation HFA aerosol inhaler 2 puff INHALATION QID PRN (Reason: SOB) Qty: 8.5 0RF montelukast 10 mg tablet 10 mg PO DAILY Qty: 30 11RF hydrocodone-acetaminophen 5-325 mg tablet 1 tablet PO Q4H PRN (Reason: pain) Qty: 30 0RF epinephrine [EpiPen 2-Paolo] 0.3 mg/0.3 mL auto-injector 0.3 mg IM ONCE Qty: 2 0RF Rx Instructions: as a single dose; may repeat once fluticasone propion-salmeterol [Wixela Inhub] 250-50 mcg/dose blister with device 1 inh inhalation BID Qty: 60 11RF Follow-up/Referrals: Francis Garcia MD [Primary Care Provider] - 1 Week ([facility] care follow up ) Stand Alone Forms: Work/School Release IP Time of Disposition: 12:53
[2024-12-23 12:47] LABS: BEDSIDEPREGUCG Negative (Negative)
== END 2024-12-23 12:58 | disposition home or self-care (01) ==
PROVIDERS: Emergency Provider Nurse Practitioner; PCP Family Medicine Adolescent Medicine
DX: R30.0 Dysuria (principal); J45.909 Unspecified asthma, uncomplicated; Z87.891 Personal history of nicotine dependence
CPT/HCPCS: 81025; 87086; 99213; G0463